=== PATIENT | male | born 1985 | race Caucasian/White ===

== ENCOUNTER 2017-05-11 17:43 | Emergency (ER) | payer OTHER ==
--- NOTE | 2017-05-11 18:08 | PDOC ---
Rapid Medical Evaluation Time Seen by Provider: 05/11/17 18:06 Medical Evaluation: Allergies Allergy/AdvReac Type Severity Reaction Status Date / Time No Known Allergies Allergy Verified 05/11/17 18:06 05/11/17 18:06 The patient presents with a chief complaint of:left eye pain radiating to left neck, no fever, no visual changes, no head injury, took motrin 400mg at 12noon with no relief I have performed a brief in-person evaluation of this patient. Pertinent physical exam findings: vss, eomi, no temporal tenderness I have ordered the following:none The patient will proceed to the ED for further evaluation. 05/11/17 18:08
[2017-05-11 18:17] VITALS: BP 140/77; PULSE 90; TEMP 98.4; BMI 20.9
[2017-05-11] MEDS ORDERED: SODIUM CHLORIDE 0.9% 1000 ML INFUS.BAG IV ONE (18:39)
--- NOTE | 2017-05-11 18:48 | PDOC ---
History of Present Illness - General Chief Complaint: Headache Stated Complaint: PAIN Time Seen by Provider: 05/11/17 18:06 History Source: Patient Exam Limitations: No Limitations - History of Present Illness Initial Comments: 05/11/17 18:40 32 yr male with c/o left sided headache for 5 days . no fever no vomiting, no recent travel . pt states he had sick contact with his daughter, who has pneumonia. pt denies nausea or vomiting, denies head injury. Pt states no history of headaches in the past, his sister has migraines. Pt works as a apprentice painter brush. 05/11/17 18:48 Associated Symptoms: reports: loss of consciousness. denies: denies symptoms, confusion, fatigue, fever/chills, insomnia, muscle spasms, paresthesia, ringing in ears, seizures Past History - Past Medical History Allergies/Adverse Reactions: Allergies Allergy/AdvReac Type Severity Reaction Status Date / Time No Known Allergies Allergy Verified 05/11/17 18:06 Home Medications: Ambulatory Orders Amoxicillin/Potassium Clav [Augmentin 875-125 Tablet] 1 each PO BID #20 tablet 05/11/17 Fluticasone Prop 0.05% Nasal [Flonase -] 1 - 2 spray NS DAILY #1 spray.pump 12/19 Naproxen [Naprosyn -] 500 mg PO BID PRN #14 tablet 05/11/17 COPD: No - Immunization History Immunization Up to Date: Yes - Suicide/Smoking/Psychosocial Hx Smoking History: Current every day smoker Have you smoked in the past 12 months: No Number of Cigarettes Smoked Daily: 5 Information on smoking cessation initiated: No Hx Alcohol Use: No Drug/Substance Use Hx: No Substance Use Type: None Neuro Specific PMHX - Complaint Specific PMHX Glaucoma: No Herniated Disk: No Laminectomy: No Migraine: No Multiple Sclerosis: No Neuropathy: No TIA: No Review of Systems - Review of Systems Able to Perform ROS?: Yes Is the patient limited Slovenian proficient: No Constitutional: No: Symptoms Reported HEENTM: No: Symptoms Reported Respiratory: No: Symptoms reported Cardiac (ROS): No: Symptoms Reported ABD/GI: No: Symptoms Reported : No: Symptoms Reported Musculoskeletal: No: Symptoms Reported Integumentary: No: Symptoms Reported Neurological: Yes: See HPI, Headache. No: Numbness, Paresthesia, Seizure, Tingling, Tremors, Weakness, Unsteady Gait, Ataxia Psychiatric: No: Anxiety, Depression, Frequent Crying *Physical Exam - Vital Signs Last Vital Signs Temp Pulse Resp BP Pulse Ox 98.4 F 90 17 140/77 98 05/11/17 18:07 05/11/17 18:07 05/11/17 18:07 05/11/17 18:07 05/11/17 18:07 - Physical Exam General Appearance: Yes: Nourished, Appropriately Dressed HEENT: positive: EOMI, LAURA, Normal ENT Inspection, TMs Normal, Pharynx Normal, Nasal Congestion. negative: Sinus Tenderness Neck: positive: Supple, Tender lateral, Other (pain with turning neck to the left lateral neck, neg midline tenderness ). negative: Tender, Decreased range of motion (FROM ), Lymphadenopathy (L), Rigidity, Tender midline, Thyromegaly Respiratory/Chest: positive: Lungs Clear, Normal Breath Sounds. negative: Chest Tender Cardiovascular: positive: Regular Rhythm, Regular Rate Gastrointestinal/Abdominal: negative: Normal Bowel Sounds, Soft Lymphatic: negative: Adenopathy Musculoskeletal: positive: Normal Inspection Extremity: positive: Normal Capillary Refill, Normal Inspection, Normal Range of Motion Integumentary: positive: Normal Color, Dry, Warm Neurologic: positive: Fully Oriented, Alert, Normal Mood/Affect, Normal Response , Motor Strength 5/5, Finger to Nose (intact). 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 denies fever no chills no shortness of breath will check labs, ct head IVF, pain meds *DC/Admit/Observation/Transfer Diagnosis at time of Disposition: Headache around the eyes Sinus infection Qualifiers: Sinusitis location: frontal Chronicity: acute Recurrence: non-recurrent Qualified Code(s): J01.10 - Acute frontal sinusitis, unspecified - Prescriptions Prescriptions: Amoxicillin/Potassium Clav [Augmentin 875-125 Tablet] 1 each PO BID #20 tablet Fluticasone Prop 0.05% Nasal [Flonase -] 1 - 2 spray NS DAILY #1 spray.pump Naproxen [Naprosyn -] 500 mg PO BID PRN #14 tablet PRN Reason: Headache - Referrals Referrals: Frandy Dickson MD [Staff Physician] - - Patient Instructions Additional Instructions: use the flonase spray as directed take augmentin as directed for 10 days take naprosyn for headache follow with the ENT doctor if symptoms worsen or persist Return to ER for any concerns - Post Discharge Activity
[2017-05-11 19:16] LABS: BASOPHIL 0.9 % (0-2.0); EOSINOPHIL 1.9 % (0-4.5); MCH 31.6 pg (25.7-33.7); MCHC 34.7 g/dl (32.0-35.9); MEAN CELL VOLUME 91.2 fl (80-96); MEAN PLT VOLUME 8.5 fl (7.5-11.1); NEUTROPHILS 73.6 % (42.8-82.8); PLATELET COUNT 283 K/MM3 (134-434); RDW 12.2 % (11.9-15.9); WHITE BLOOD COUNT 10.7 K/mm3 (4.0-10.0)
[2017-05-11 19:42] LABS: ALBUMIN 3.7 g/dl (3.4-5.0); ALK PHOS 102 U/L (45-117); ANION GAP 6 (8-16); BILIRUBIN,TOTAL 0.2 mg/dL (0.2-1.0); CALCIUM 8.6 mg/dL (8.5-10.1); CO2 29 mmol/L (21-32); CREATININE 0.8 mg/dL (0.7-1.3); GLUCOSE,RANDOM 99 mg/dL (74-106); SGOT/AST 19 U/L (15-37); SGPT/ALT 40 U/L (12-78); TOT PROT 7.5 g/dl (6.4-8.2)
[2017-05-11] MEDS ORDERED: KETOROLAC TROMETHAMINE 30 MG/1 ML VIAL IVPUSH ONE (20:12)
[2017-05-11] MEDS ORDERED: KETOROLAC TROMETHAMINE 60 MG/2 ML VIAL IM ONE (20:19)
[2017-05-11] MEDS ORDERED: KETOROLAC TROMETHAMINE 60 MG/2 ML VIAL ONE (20:20)
[2017-05-12 01:19] LABS: ERYTHROCYTE SEDIMENTATION RATE 30 mm/hr (0-10)
== END 2017-05-11 20:39 | disposition home or self-care (01) ==
LOC: JERFT 17:43
DX: J01.10 Acute frontal sinusitis, unspecified (principal); F17.210 Nicotine dependence, cigarettes, uncomplicated
CPT/HCPCS: 36415; 70450-TC; 80053; 85025; 85651; 86618; 99281-25

== ENCOUNTER 2018-09-16 08:42 | Emergency (ER) | payer OTHER ==
[2018-09-16 08:47] VITALS: BP 124/88; PULSE 76; TEMP 98.4; BMI 21.7
[2018-09-16] MEDS ORDERED: ACETAMINOPHEN 325 MG TABLET (FP) PO ONE (09:24)
[2018-09-16] MEDS ORDERED: ACETAMINOPHEN 325 MG TABLET (FP) ONE (09:26)
--- NOTE | 2018-09-16 09:30 | PDOC ---
History of Present Illness - General Chief Complaint: Rectal Bleed Stated Complaint: SWOLLEN THUMB Time Seen by Provider: 09/16/18 09:16 History Source: Patient Exam Limitations: No Limitations (L thumb pain s/p laceration 2 days ago, dominant hand, last tetanus 2 yrs ago) - History of Present Illness Associated Symptoms: denies: fever/chills Past History - Travel Traveled outside of the country in the last 30 days: No Close contact w/someone who was outside of country & ill: No - Past Medical History Allergies/Adverse Reactions: Allergies Allergy/AdvReac Type Severity Reaction Status Date / Time No Known Allergies Allergy Verified 09/16/18 08:47 Home Medications: Ambulatory Orders Cephalexin [Keflex] 500 mg PO BID 7 Days #14 capsule 09/16/18 Ibuprofen 600 mg PO ACDIN 7 Days #21 tablet 09/16/18 Mupirocin Ointment [Bactroban 2% Ointment -] 1 applic TP BID 7 Days #30 gm 09/16 COPD: No DVT: No - Immunization History Immunization Up to Date: Yes - Suicide/Smoking/Psychosocial Hx Smoking History: Current every day smoker Have you smoked in the past 12 months: No Number of Cigarettes Smoked Daily: 7 Information on smoking cessation initiated: No Hx Alcohol Use: No Drug/Substance Use Hx: No Substance Use Type: None Review of Systems - Review of Systems Is the patient limited Malay proficient: No Constitutional: No: Chills, Fever Musculoskeletal: Yes: Joint Swelling, Other (L thumb swelling and pain). No: Muscle Weakness, Joint Stiffness Integumentary: Yes: Erythema Neurological: No: Numbness, Weakness *Physical Exam - Vital Signs Last Vital Signs Temp Pulse Resp BP Pulse Ox 98.4 F 76 18 124/88 99 09/16/18 08:44 09/16/18 08:44 09/16/18 08:44 09/16/18 08:44 09/16/18 08:44 - Physical Exam General Appearance: Yes: Nourished Respiratory/Chest: positive: Lungs Clear, Normal Breath Sounds Cardiovascular: positive: Regular Rhythm, Regular Rate, S1, S2 Extremity: positive: Normal Capillary Refill, Normal Range of Motion, Erythema, Inflammation, Other (L thumb: 0.5cm superfical laceration noted over DIP, + swelling with warmth, no pus expresses. 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 Patient reports he cleansed the area with peroxide when he was working he reports pain. His last tetanus was 2 years ago. Patient had denies any history of diabetes or any prior medical condition. He is coming in today with worsening pain and redness to the thumb he denies any fever chills. Examination consistent with cellulitis and tissue swelling, antibiotic will be sent to pharmacy with instructions to return in 2 days for wound check. signs and symptoms of worsening wound infection discussed with patient 09/16/18 10:29 *DC/Admit/Observation/Transfer Diagnosis at time of Disposition: Cellulitis Qualifiers: Site of cellulitis: extremity Site of cellulitis of extremity: finger Laterality: left Qualified Code(s): L03.012 - Cellulitis of left finger - Discharge Dispostion Disposition: HOME Condition at time of disposition: Stable Decision to Admit order: No - Prescriptions Prescriptions: Cephalexin [Keflex] 500 mg PO BID 7 Days #14 capsule Ibuprofen 600 mg PO ACDIN 7 Days #21 tablet Mupirocin Ointment [Bactroban 2% Ointment -] 1 applic TP BID 7 Days #30 gm - Referrals - Patient Instructions Printed Discharge Instructions: Cellulitis Additional Instructions: Please take antibiotics as prescribed, Keep area clean and dry Return to the ER in 2 days for a wound check Please return soon if worsening pain, redness is extending or pus expressing from finger - Post Discharge Activity Forms/Work/School Notes: Back to Work
== END 2018-09-16 09:42 | disposition home or self-care (01) ==
LOC: JERFT 08:42
DX: S61.012A Laceration without foreign body of left thumb without damage to nail, initial encounter (principal); L03.012 Cellulitis of left finger; W26.8XXA Contact with other sharp object(s), not elsewhere classified, initial encounter; Y93.89 Activity, other specified; Y92.69 Other specified industrial and construction area as the place of occurrence of the external cause; Y99.0 Civilian activity done for income or pay
CPT/HCPCS: 99281-25

== ENCOUNTER 2023-03-20 17:03 | Emergency (ER) | payer OTHER ==
[2023-03-20 17:09] VITALS: BP 133/79; PULSE 81; RESP 16; TEMP 98.7; BMI 22.7
[2023-03-20] MEDS ORDERED: TETRACAINE 0.5% HCL 0.6ML DROPPER.BOTTLE OD ONE (17:29)
[2023-03-20] MEDS ORDERED: FLUORESCEIN NA 1 EA STRIP OD ONE (17:29)
[2023-03-20] MEDS ORDERED: TETRACAINE 0.5% OPHTH SOLN 2 ML BOTTLE ONE (17:34)
[2023-03-20] MEDS ORDERED: FLUORESCEIN NA 1 EA STRIP ONE (17:34)
== END 2023-03-20 17:59 | disposition home or self-care (01) ==
LOC: JERFT 17:03
DX: H10.9 Unspecified conjunctivitis (principal); H02.841 Edema of right upper eyelid
CPT/HCPCS: 99283-25

== ENCOUNTER 2024-03-26 17:51 | Emergency (ER) | payer SELFPAY ==
[2024-03-26 18:11] VITALS: BP 124/80; PULSE 88; RESP 20; TEMP 98.4; BMI 21.9
== END 2024-03-26 21:26 | disposition left against medical advice (07) ==
LOC: JERFT 17:51
DX: J02.9 Acute pharyngitis, unspecified (principal)
CPT/HCPCS: 87651; 99283-25